=== PATIENT | male | born 1945 | race Caucasian/White ===

== ENCOUNTER 2019-11-10 14:30 | Observation (INO) | payer BC ==
[~2019-11-10] VITALS: Ht 182.2 cm; Wt 92.2 kg
[2019-11-10] MEDS ORDERED: aspirin 81mg tab.chew PO ONE (14:50)
[2019-11-10 15:08] LABS: BASOPHILS % (AUTO) 0.3 % (0-1); EOSINOPHILS # (AUTO) 0.1 X10'3 (0-0.9); EOSINOPHILS % (AUTO) 0.8 % (0-6); HEMATOCRIT 37.6 % (42.0-52.0); HEMOGLOBIN 12.7 g/dl (14.0-17.9); LYMPHOCYTES # (AUTO) 0.5 X10'3 (1.1-4.8); LYMPHOCYTES % (AUTO) 4.1 % (21-51); MEAN CORPUSCULAR HEMOGLOBIN 31.2 PG (27.0-31.0); MEAN CORPUSCULAR HGB CONC 33.8 g/dL (33.0-36.5); MEAN CORPUSCULAR VOLUME 92.5 FL (78-98); MEAN PLATELET VOLUME 7.5 FL (7.4-10.4); MONOCYTES # (AUTO) 0.9 X10'3 (0-0.9); MONOCYTES % (AUTO) 7.1 % (2-12); NEUTROPHILS # (AUTO) 10.9 X10'3 (1.8-7.7); NEUTROPHILS % (AUTO) 87.7 % (42-75); PLATELET COUNT 186 X10'3 (140-440); RED BLOOD COUNT 4.07 X10'6 (4.70-6.10); RED CELL DISTRIBUTION WIDTH 14.7 % (11.5-14.5); WHITE BLOOD COUNT 12.5 X10'3 (4.5-11.0)
[2019-11-10 15:22] LABS: ALANINE AMINOTRANSFERASE 15 U/L (12-78); ALBUMIN 3.7 G/DL (3.4-5.0); ALKALINE PHOSPHATASE 517 IU/L (46-116); ANION GAP 6 (8-16); ASPARTATE AMINO TRANSFERASE 42 U/L (10-37); BILIRUBIN,TOTAL 0.7 MG/DL (0.1-1.0); BLOOD UREA NITROGEN 28 MG/DL (7-18); BUN/CREATININE RATIO 18.8 (5.4-32.0); CALCIUM 9.1 MG/DL (8.5-10.1); CHLORIDE 100 MMOL/L (99-107); CREATININE 1.49 MG/DL (0.60-1.10); GLUCOSE 123 MG/DL (70-104); POTASSIUM 3.9 MMOL/L (3.5-5.1); SODIUM 135 MMOL/L (135-145); TOTAL CARBON DIOXIDE 28.6 MMOL/L (24-32); TOTAL PROTEIN 7.5 G/DL (6.4-8.2); eGFR 46 ML/MIN
[2019-11-10] MEDS ORDERED: KETO10TA2 PO (15:57)
[2019-11-10] MEDS ORDERED: DIAZ5TAB PO (15:57)
[2019-11-10] MEDS ORDERED: HYDR-4353 PO (15:57)
[2019-11-10] MEDS ORDERED: [UNRECOGNIZED DRUG - CODE] PO (16:09)
[2019-11-10] MEDS ORDERED: IBUP-1984 PO (16:09)
[2019-11-10] MEDS ORDERED: ABIR500T PO (16:09)
[2019-11-10] MEDS ORDERED: PRED5TAB49 PO (16:09)
[2019-11-10] MEDS ORDERED: potassium Cl 20 mEq SR tablet PO PRN ×2 (16:15)
[2019-11-10] MEDS ORDERED: metoprolol tartrate 1mg/ml inj IV PRN (16:15)
[2019-11-10] MEDS ORDERED: diphenhydrAMINE 50 mg/ml inj IV PRN (16:15)
[2019-11-10] MEDS ORDERED: morphine 2 MG/ML inj. syringe IV PRN ×2 (16:15)
[2019-11-10] MEDS ORDERED: HYDROcodone/acetaminophen 5mg/325mg tablet PO PRN (16:15)
[2019-11-10] MEDS ORDERED: magnesium 4gm in 100ml NS 100 ML IV PRN (16:15)
[2019-11-10] MEDS ORDERED: diphenhydrAMINE 25mg capsule PO PRN (16:15)
[2019-11-10] MEDS ORDERED: mag hydrox/Alum hydrox/simeth 30ml oral suspension PO PRN (16:15)
[2019-11-10] MEDS ORDERED: potassium CL 10mEq/100ml bag 100 ML IV PRN ×2 (16:15)
[2019-11-10] MEDS ORDERED: bisacodyl 10mg suppository rectal RC PRN (16:15)
[2019-11-10] MEDS ORDERED: acetaminophen 325mg tablet PO PRN ×2 (16:15)
[2019-11-10] MEDS ORDERED: acetaminophen 650mg rectal suppository RC PRN (16:15)
[2019-11-10] MEDS ORDERED: ondansetron/PF 4mg/2ml inj IV PRN (16:15)
[2019-11-10] MEDS ORDERED: aminophylline 250mg/10ml inj. IV PRN (16:15)
[2019-11-10] MEDS ORDERED: regadenoson 0.4mg/5ml syringe IV ONE (16:15)
[2019-11-10] MEDS ORDERED: metoclopramide 5 mg/ml inj IV PRN (16:15)
[2019-11-10] MEDS ORDERED: HYDROcodone/acetaminophen 10/325mg tab PO PRN (16:15)
[2019-11-10] MEDS ORDERED: magnesium Cl slow-release 64mg tablet PO PRN (16:15)
[2019-11-10] MEDS ORDERED: nitroGLYCERIN 0.4mg SUBLingual tab SL PRN (16:15)
[2019-11-10] MEDS ORDERED: magnesium hydroxide 30ml (MOM) UD suspension PO PRN (16:15)
[2019-11-10] MEDS ORDERED: magnesium 2GM in 50ml NS 50 ML IV PRN (16:15)
[2019-11-10 16:41] LABS: HEMOGLOBIN A1C 6.2 % (4.5-6.2)
[2019-11-10] MEDS: normal saline 1000ml 1,000 ML IV SCH (17:04)
--- NOTE | 2019-11-10 18:23 | NUR ---
Pt. C/O increasing Chest Pain
--- NOTE | 2019-11-10 18:32 | NUR ---
ekg ordered for c/o increasing chest pain, dr petty paged
[2019-11-10 19:00] VITALS: BP 156/72
--- NOTE | 2019-11-10 19:00 | NUR ---
Patient in room PCU 3026. I have received report from Williams GHOTRA in ER over the phone and had the opportunity to ask questions and assume patient care. Patient was brought up to room with all belongings and family at bedside.
[2019-11-10] MEDS: K and/or MAG REPLACEMENT MC SCH (20:00)
[2019-11-10] MEDS ORDERED: temazepam 15mg capsule PO PRN (21:00)
[2019-11-10] MEDS: heparin, porcine 5000 units/ml vial SQ SCH (21:05)
[2019-11-10 22:00] VITALS: BP 131/47
[2019-11-11] VITALS (7 sets, daily range): BP systolic 119–150; BP diastolic 55–75
[2019-11-11] MEDS: normal saline 1000ml 1,000 ML IV SCH ×2 (02:52→12:11)
[2019-11-11 03:17] LABS: BASOPHILS # (AUTO) 0.1 X10'3 (0-0.2); BASOPHILS % (AUTO) 1.1 % (0-1); EOSINOPHILS # (AUTO) 0.3 X10'3 (0-0.9); EOSINOPHILS % (AUTO) 3.3 % (0-6); HEMATOCRIT 35.5 % (42.0-52.0); LYMPHOCYTES # (AUTO) 0.9 X10'3 (1.1-4.8); MEAN CORPUSCULAR HEMOGLOBIN 31.1 PG (27.0-31.0); MEAN CORPUSCULAR HGB CONC 33.9 g/dL (33.0-36.5); MEAN CORPUSCULAR VOLUME 91.9 FL (78-98); MEAN PLATELET VOLUME 7.4 FL (7.4-10.4); MONOCYTES # (AUTO) 0.9 X10'3 (0-0.9); MONOCYTES % (AUTO) 10.2 % (2-12); NEUTROPHILS # (AUTO) 6.6 X10'3 (1.8-7.7); NEUTROPHILS % (AUTO) 75.4 % (42-75); PLATELET COUNT 156 X10'3 (140-440); RED BLOOD COUNT 3.87 X10'6 (4.70-6.10); RED CELL DISTRIBUTION WIDTH 14.8 % (11.5-14.5); WHITE BLOOD COUNT 8.8 X10'3 (4.5-11.0)
[2019-11-11 03:35] LABS: ALANINE AMINOTRANSFERASE 6 U/L (12-78); ALBUMIN/GLOBULIN RATIO 0.8 (1.1-1.5); ALKALINE PHOSPHATASE 428 IU/L (46-116); ANION GAP 10 (8-16); ASPARTATE AMINO TRANSFERASE 34 U/L (10-37); BILIRUBIN,TOTAL 0.6 MG/DL (0.1-1.0); BLOOD UREA NITROGEN 29 MG/DL (7-18); BUN/CREATININE RATIO 20.9 (5.4-32.0); CALCIUM 8.5 MG/DL (8.5-10.1); CHLORIDE 103 MMOL/L (99-107); CHOL/HDL RATIO 2.2 (0.00-4.99); CHOLESTEROL 121 MG/DL (0-200); CREATININE 1.39 MG/DL (0.60-1.10); GLUCOSE 102 MG/DL (70-104); HDL CHOLESTEROL 54 MG/DL (35-60); LDL CHOLESTEROL 64 MG/DL (50-100); MAGNESIUM 1.9 MG/DL (1.5-2.4); PHOSPHORUS 2.6 MG/DL (2.3-4.5); POTASSIUM 3.7 MMOL/L (3.5-5.1); SODIUM 139 MMOL/L (135-145); TOTAL CARBON DIOXIDE 25.6 MMOL/L (24-32); TOTAL PROTEIN 6.8 G/DL (6.4-8.2); TRIGLYCERIDES 67 MG/DL (20-135); eGFR 50 ML/MIN
[2019-11-11 04:26] LABS: TROPONIN I < 0.04 NG/ML (0.0-0.05)
--- NOTE | 2019-11-11 05:00 | NUR ---
END NOC NOTE Patient slept well tonight. Hulbert 5 was given with no help to pain, Morphine was then given and patient was much more comfortable and stayed at a level 3 for the rest of the night. Patient able to walk to the bathroom with cane and assistance with IV pole. He manages both nephrostomy bags on his own, draining well; he mentions he still urinates a little with coughs and wears a depends. Patient has been NPO from midnight for AM kenya-scan. Spouse is able to get information on [facility] and his stay here, she took [facility] clinical trial for prostate cancer medication home, will pass on to day shift to D/C from [facility], she also took wallet home. Will continue to monitor.
--- NOTE | 2019-11-11 06:20 | NUR ---
Patient in room PCU 3026. I have received report from BRANDIN Knox and had the opportunity to ask questions and assume patient care.
--- NOTE | 2019-11-11 06:30 | NUR ---
Problems reprioritized. Patient report given, questions answered & plan of care reviewed with Daly GHOTRA.
[2019-11-11] MEDS: K and/or MAG REPLACEMENT MC SCH (08:00)
[2019-11-11] MEDS ORDERED: aspirin 325mg tablet PO SCH (08:30)
[2019-11-11] MEDS ORDERED: aspirin 81mg tablet.DR PO SCH (08:42)
[2019-11-11] MEDS: heparin, porcine 5000 units/ml vial SQ SCH (08:47)
--- NOTE | 2019-11-11 09:15 | NUR ---
Patient left the floor in w/c with Nuclear Medicine staff to have Lexiscan. Patient was alert and oriented and in stable condition.
[2019-11-11] MEDS ORDERED: regadenoson 0.4mg/5ml syringe IV ONE (09:30)
--- NOTE | 2019-11-11 10:45 | NUR ---
Patient arrived back to the unit via a w/c from [employer]. Patient is alert and oriented and in stable condition.
[2019-11-11] MEDS ORDERED: ASPI-1071 PO (12:17)
--- NOTE | 2019-11-11 13:45 | NUR ---
Patient is discharged home. All discharge instructions gone over with patient and written instructions given to the patient. Patient is alert and oriented and in stable condition. Removed PIV, cannula intact and patient tolerated well. All patient belongings taken with patient. Patient went down to private vehicle with BRANDIN Bhatt in a wheelchair.
== END 2019-11-11 13:40 | disposition home or self-care (01) ==
LOC: ER 14:32 → EDBD 14:32 → ED HOLD 16:11 → PCU 3S 19:05
PROVIDERS: ADMIT Family Medicine; ATTEND Family Medicine
DX: R07.89 Other chest pain (principal); I24.9 Acute ischemic heart disease, unspecified; C61 Malignant neoplasm of prostate; C77.9 Secondary and unspecified malignant neoplasm of lymph node, unspecified; C79.51 Secondary malignant neoplasm of bone; J44.9 Chronic obstructive pulmonary disease, unspecified; Z92.3 Personal history of irradiation; Z96.0 Presence of urogenital implants; Z87.891 Personal history of nicotine dependence; Z79.899 Other long term (current) drug therapy
CPT/HCPCS: 36415; 71045; 78452; 80053; 80061; 83036; 83735; 83880; 84100; 84484; 85025; 87081; 93005; 93017; 93306; 96372; 96374; 99284; A9500; G0378; J0280; J1644; J2270; J7030; J2785